=== PATIENT | male | born 1985 | race African-American/Black ===

== ENCOUNTER 2018-06-19 23:22 | Emergency (ER) | payer OTHER ==
--- NOTE | 2018-06-20 00:02 | ED Physician Documentation ---
History of Present Illness - Stated complaint Stated Complaint: LETHARGIC - Chief complaint Chief Complaint: General - History obtained from History obtained from: Patient, Police - Additonal information Additional information: The patient is a 32-year-old male who arrives in custody of [facility]'s [place] who states that the patient became very lethargic as they were preparing to transport him to [facility]. He admitted to using methamphetamine, and had been fully alert at the time of his initial encounter with law enforcement. Further history is not able to be reliably obtained from the patient due to his lack of cooperation. 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, TBI, - Past Surgical History Past Surgical History: No - Social History Does the pt smoke?: Yes Smoking Status: Current every day smoker Does the pt drink ETOH?: Yes Substance Use and Type: Meth - POLST Patient has POLST: No PD ED PE NORMAL - Vitals Vital signs reviewed: Yes (initially hypertensive.) - General General: Alert and oriented X 3, Well developed/nourished, Other (arrives in shackles and handcuffs, and actively resists being placed on the gurney.) - HEENT HEENT: Dentition benign (Arrives in shackles and handcuffs, and actively resists being placed on the gurney.) - Neck Neck: Supple, no meningeal sign, No bony TTP - Cardiac Cardiac: RRR - Respiratory Respiratory: No respiratory distress, Clear bilaterally - Abdomen Abdomen: Soft, Non tender - Back Back: No CVA TTP - Derm Derm: No rash - Extremities Extremities: No tenderness to palpate, No edema, No calf tenderness / cord - Neuro Neuro: Alert and oriented X 3, No motor deficit Results - Vitals Vitals: Oxygen O2 Source Room air - EKG (time done) 23:23 Rate: Rate (enter#) (102) Rhythm: Sinus tachycardia [place]: Normal Intervals: Normal ID QRS: Normal Ischemia: Normal ST segments Computer interpretation: Agree with computer - Labs Labs: Laboratory Tests 06/19/18 23:46 POC Whole Bld Glucose 121 H PD MEDICAL DECISION MAKING - ED course Complexity details: considered differential, d/w patient, other (d/w [facility] [place].) ED course: I suspect the patient's lethargy at the [facility] was voluntary behavior. He exhibited no lethargy in the emergency department, and was actively resistant to evaluation. Fingerstick blood sugar is normal at 121. I do not think further laboratory evaluation is clinically indicated. He was medically cleared for booking into [facility]. - Sepsis Event Vital Signs: Oxygen O2 Source Room air Departure - Departure Disposition: 01 Home, Self Care Clinical Impression: Methamphetamine abuse, Agitation Condition: Stable Instructions: ED Drug Abuse General Discharge Date/Time: 06/20/18 00:20
[2018-06-20 00:20] VITALS: BP 117/67
== END 2018-06-20 00:20 | disposition home or self-care (01) ==
LOC: ED 23:22
DX: F15.10 Other stimulant abuse, uncomplicated (principal); R45.1 Restlessness and agitation; H54.40 Blindness, one eye, unspecified eye; Z87.820 Personal history of traumatic brain injury; F17.200 Nicotine dependence, unspecified, uncomplicated
CPT/HCPCS: 99283

== ENCOUNTER 2020-05-10 15:06 | Outpatient (CLI) | payer OTHER | END 2020-05-10 15:07 | disposition critical access hospital (66) | LOC: EMS 15:06 | PROVIDERS: ATTEND Surgery | DX: R07.9 Chest pain, unspecified (principal); R06.02 Shortness of breath | CPT/HCPCS: A0425; A0429 ==

== ENCOUNTER 2020-05-10 15:26 | Emergency (ER) | payer OTHER ==
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
[2020-05-10 15:36] VITALS: BP 133/84
[2020-05-10] MEDS ORDERED: ONDANSETRON ODT 4 MG TABLET TL STA (15:42)
== END 2020-05-10 16:23 | disposition home or self-care (01) ==
LOC: EDUNIT# → ED 15:26
DX: R07.89 Other chest pain (principal); R00.0 Tachycardia, unspecified; W01.0XXA Fall on same level from slipping, tripping and stumbling without subsequent striking against object, initial encounter; Y93.02 Activity, running; F17.200 Nicotine dependence, unspecified, uncomplicated
CPT/HCPCS: 93005; 99283; 99284; Q0162